=== PATIENT | male | born 1970 | race Caucasian/White ===

== ENCOUNTER 2024-05-28 07:20 | Emergency (ER) | payer OTHER, SELFPAY ==
[2024-05-28 07:21] VITALS: BP 181/105; PULSE 81; RESP 16; TEMP 36.6; O2SAT 94; BMI 50.5
--- NOTE | 2024-05-28 07:43 | RAD_ITS ---
STUDY: X-RAY - UNILATERAL RIBS ( LEFT ) WITH CHEST REASON FOR EXAM: Male, 53 years old. Cough, pain TECHNIQUE - RIBS: 4 view(s) of the ribs. TECHNIQUE - CHEST: Single PA view of the chest. COMPARISON: None. FINDINGS - RIBS: Normal visualized ribs without a demonstrated fracture. FINDINGS - CHEST: Mild degree of increased markings at the left lung base suggestive of left basilar atelectasis. Scattered calcified granulomas. There is no demonstrated pleural abnormality. Normal size heart. Normal mediastinum and whitley. Normal visualized pulmonary arteries. Normal visualized aortic arch and descending thoracic aorta. Normal visualized thoracic spine. Normal visualized ribs, clavicles, and shoulders. There is no demonstrated abnormality of the visualized soft tissue structures of the upper abdomen. RAD/Ribs Uni Min 3V w/PA Chest IMPRESSION: RIBS: Normal x-ray examination of the ribs. CHEST: Mild degree of increased markings at the left lung base suggestive of left basilar atelectasis. Scattered calcified granulomas. Electronically Signed: Paresh Saleh MD at 8:34 EDT ,
--- NOTE | 2024-05-28 07:43 | EKG12_ITS ---
Test Reason : CP Blood Pressure : / mmHG Vent. Rate : 077 BPM Atrial Rate : 077 BPM P-R Int : 180 ms QRS Dur : 098 ms QT Int : 362 ms P-R-T Axes : 016 027 -05 degrees QTc Int : 409 ms Normal sinus rhythm Normal ECG Confirmed by RUFUS ROCHA, MARQUIS ([id number]), editor publications VERO SHANE ([id number]) on 05/30/2024 11:47:08 AM Referred By: Confirmed By:MARQUIS HOOPER MD
--- NOTE | 2024-05-28 07:44 | EDS_ITS ---
HPI History of Present Illness Chief Complaint: Shortness of Breath Informant: patient and spouse/S.O. Narrative Narrative: Worsening left-sided dyspnea left rib discomfort since yesterday. Here with spouse states had a cough starting in April that was subsiding. 3 days ago slight increased cough. No fevers or chills. He states yesterday after lunch getting into his truck he felt a pop on his left side. Overnight increasing difficulty breathing. Pain with deep breaths. No fevers or chills. He has had pneumonia in the past with pleurisy per spouse. He has had rib fractures on the left side in the past. History of kidney stones and kidney infection in the past. Denies any cardiac history. Denies recent travel, surgeries, or immobilizations. No history of PE or DVT. Denies tobacco history. Prior similar symptoms: Yes PFSH PFSH Home Medications ?Medication ?Instructions ?Recorded ?Last Taken ?Type ibuprofen 600 mg tablet 600 mg PO Q6H PRN PRN pain #20 05/28/24 Unknown Rx TABLETS Allergy/AdvReac Type Severity Reaction Status Date / Time No Known Allergies Allergy Verified 05/28/24 07:21 Social History Smoking Status: Never smoker ROS ROS ED Constitutional Constitutional ED: Denies chills, fever(s) or sweats Eyes Eyes: Denies change in vision ENT ENT ED: Denies dysphagia or sore throat Cardiovascular Cardiovascular: Denies chest pain, leg edema, palpitations or racing heartbeat Respiratory/Chest Respiratory/Chest: Reports cough and dyspnea; Denies dyspnea on exertion Gastrointestinal Gastrointestinal: Denies abdominal pain, diarrhea, nausea or vomiting Genitourinary Genitourinary ED: Denies dysuria, hematuria or urinary frequency Musculoskeletal Musculoskeletal: Denies back pain, extremity pain or neck pain Integumentary Denies rash or wounds Neurologic Neurologic: Denies headache(s), paresthesias or weakness EXAM Physical Exam Const Vital Signs: 05/28/24 07:21 05/28/24 08:07 05/28/24 08:07 Temperature 97.8 F Temperature Source Oral Pulse Rate 81 76 Respiratory Rate 16 Respiratory Effort Normal Non-Labored Respiratory Depth Normal Respiratory Pattern Normal Blood Pressure 181/105 H Blood Pressure Mean 130 Pulse Ox 94 Oxygen Delivery Method Room Air Room Air Positive well nourished and well developed General Appearance ED: well developed and NAD HEENT Reports moist mucous membranes normocephalic and atraumatic Eyes EOMs intact bilaterally and conjunctivae normal General Eye ED: Yes normal appearance of both eyes Neck no lymphadenopathy and supple General: Negative for tenderness Chest Wall Chest Narrative: Tender palpation left lateral ribs with no crepitus no ecchymosis. Chest: tenderness Resp normal respiratory effort and normal air movement Resp Narrative: Symmetric breath sounds Effort and Inspection: symmetric chest movement; Negative for respiratory distress Cardio regular rate, regular rhythm and no murmurs Peripheral Pulses: pulses 2+ throughout GI normal to inspection, nondistended, normoactive bowel sounds and non-tender Palpation: Negative for guarding or rebound tenderness present Back/Spine no CVA tenderness and no thoracic nor lumbar tenderness Extremity normal to inspection General Extremety ED: Negative for edema or tenderness General Extremity: Negative for edema Neuro oriented x3 and no sensory deficits noted Sensorium / Orientation: awake and alert Skin no rashes or lesions noted and no wounds MDM MDM MDM Narrative Medical decision making narrative: Interventions / MDM: Differential diagnosis: Rib strain, atypical chest pain Diagnosis considered but do not suspect: Pneumothorax however x-ray negative. Fracture however x-ray negative. My EKG interpretation: Sinus rate of 77, no ST changes, isolated T wave version lead III. Nonspecific. QTc 409. Imaging independently reviewed and interpreted by myself: 4 view chest with left ribs: No fracture or pneumothorax also read by radiologist. External documents reviewed: N/A Test considered but not ordered:N/A ED course: EKG no acute findings. Left rib pains with increasing cough. He has symmetric breath sounds on exam. Left rib series with PA chest ordered, will check labs and troponin. Toradol ordered to help with pain. Workup including cardiac enzyme negative. Rib series were negative. Discussed rib strain with the patient with atypical chest pain. He will be continued on NSAIDs. Outpatient follow-up with his doctor. All questions were answered. Re-evaluation: stable Disposition discussed with patient/family/significant other: Patient and significant other Case discussed with consulting clinician: N/A This note was generated with [employer] dictation software. It may contain incorrect words, spelling, and punctuation that were not noted in checking the note before signing. Lab Data Attestation: I reviewed the patient's lab results. Labs: Laboratory Results - last 24 hr 05/28/24 07:53 WBC 9.1 RBC 5.12 Hgb 15.4 Hct 46.8 MCV 91.4 MCH 30.1 MCHC 32.9 RDW Std Deviation 46.7 H RDW Coeff of Rafael 13.9 Plt Count 152 MPV 10.5 Immature Gran % (Auto) 0.300 Neut % (Auto) 67.3 Lymph % (Auto) 15.0 L Knott % (Auto) 9.3 Eos % (Auto) 7.5 H Baso % (Auto) 0.6 Absolute Neuts (auto) 6.1 Absolute Lymphs (auto) 1.36 Nucleated RBC % 0 Sodium 139 Potassium 3.8 Chloride 108 H Carbon Dioxide 26.0 Anion Gap 4 L BUN 16 Creatinine 0.96 Estim Creat Clear Calc 140.44 Est GFR (MDRD) Af Amer 105 Est GFR (MDRD) Non-Af 86 BUN/Creatinine Ratio 16.7 Glucose 112 H Calcium 9.0 Troponin I High Sens 11 Radiography Diagnostic Testing: Clinical Impression(s) from Imaging Studies Ribs w/Chest X-Ray 05/28/24 07:43 IMPRESSION: RIBS: Normal x-ray examination of the ribs. CHEST: Mild degree of increased markings at the left lung base suggestive of left basilar atelectasis. Scattered calcified granulomas. Electronically Signed: Paresh Saleh MD at 8:34 EDT Reading Location ID and State: [address] [place] [address] , Service support , Discharge Plan Triage Chief Complaint: Shortness of Breath ED Provider: Chase Chang Dx/Rx/DC Orders Clinical Impression: Rib pain on left side, Chest pain, Visit for wound check Instructions: ED Chest Pain, Noncardiac Prescriptions: New ibuprofen 600 mg tablet 600 mg PO Q6H PRN PRN (Reason: pain) Qty: 20 0RF Primary Care Provider: Care Physician,No Primary Referrals: Que Oliveros MD [Med Staff - [employer]] - 1 Week Care Physician,No Primary [Primary Care Provider] - [facility] [Non-Staff] - 3-5 Days Activity Restrictions/Additional Instructions: Cardiac workup negative rib x-rays need for fracture no pneumothorax no pneumonia findings. Continue ibuprofen every 6 hours for symptom control. For your wound, follow-up with wound center for continued care and evaluation. Follow-up with Dr. Oliveros as PCP for yearly care and referrals as needed. Print Language: Thai Disposition Disposition: Home, Self Care Discharge Date/Time: 05/28/24 09:14
--- NOTE | 2024-05-28 07:47 | NURSING ---
NO OLD EKGS
[2024-05-28 08:01] LABS: Absolute Lymphocyte Count 1.36 X10^3/uL (0.83-4.51); Absolute Neutrophil Count 6.1 X10^3/uL (2.0-7.7); Basophil# 0.05 X10^3/uL; Basophil% 0.6 % (0-1); Eosinophil# 0.68 X10^3/uL; Eosinophils% 7.5 % (0-5); Hematocrit 46.8 % (40-54); Hemoglobin 15.4 g/dL (13.0-16.5); Lymphocyte # 1.36 X10^3/ul (0.83-4.51); Mean Corp Hgb Conc 32.9 g/dL (32-36); Mean Corpuscular Hgb 30.1 pg (27.0-32.0); Mean Corpuscular Volume 91.4 fL (80-94); Mean Platelet Vol. 10.5 fl (6.2-12.0); Monocyte# 0.84 X10^3/uL; Monocyte% 9.3 % (0-10); NRBC Flagged by Analyzer 0 % (0-5); Neutrophil # 6.09 X10^3/uL (2.7-7.7); Neutrophil % 67.3 % (47-70); Platelet Count 152 K/mm3 (150-450); RBC Distribution Width CV 13.9 % (11.6-14.6); RBC Distribution Width SD 46.7 fl (35.1-43.9); Red Blood Count 5.12 M/mm3 (4.6-6.2); White Blood Count 9.1 K/mm3 (4.4-11.0)
[2024-05-28] MEDS: Ketorolac 15 MG/ML Vial IV (08:02)
[2024-05-28 08:07] VITALS: PULSE 76
[2024-05-28 08:22] LABS: Anion Gap 4 (5-15); BUN 16 mg/dL (7-18); BUN/Creat Ratio 16.7 RATIO (10-20); Chloride 108 mmol/L (98-107); Creatinine, Serum 0.96 mg/dL (0.70-1.30); EST Glomerular Filtration Rate 86 mL/min (>60); Est Glom Filt Rate - Afr Amer 105 mL/min (>60); Estimated Creatinine Clearance 140.44 ml/min; Glucose 112 mg/dL (74-106); Potassium 3.8 mmol/L (3.5-5.1); Sodium Level 139 mmol/L (136-145); Troponin-I HS 11 pg/mL (3.0-78.0)
== END 2024-05-28 09:14 | disposition home or self-care (01) ==
PROVIDERS: Emergency Provider Emergency Medicine; Visit Provider Emergency Medicine
DX: R07.81 Pleurodynia (principal)
CPT/HCPCS: 71101; 80048; 84484; 85025; 93005; 99284; A4216